=== PATIENT | female | born 1945 | race Asian ===

== ENCOUNTER 2017-06-02 09:37 | Day surgery (SDC) | payer MEDICARE, OTHER ==
[2017-06-02] MEDS ORDERED: NS 1,000 ML IV (10:15)
[2017-06-02] MEDS ORDERED: PROPOFOL 200 MG/20 ML VIAL As Ordered (10:57)
[2017-06-02] MEDS ORDERED: LIDOCAINE 2% INJ 100 MG/5 ML SDV (FOR ANES.) As Ordered (10:58)
== END 2017-06-02 11:45 | disposition home or self-care (01) ==
LOC: M OPP 09:37
DX: R12 Heartburn (principal); Z01.818 Encounter for other preprocedural examination; K21.9 Gastro-esophageal reflux disease without esophagitis; Z79.899 Other long term (current) drug therapy; Z88.8 Allergy status to other drugs, medicaments and biological substances
CPT/HCPCS: 91035

== ENCOUNTER 2017-09-08 09:46 | Day surgery (SDC) | payer MEDICARE, OTHER ==
[2017-09-08] MEDS: NS 1,000 ML IV (11:00)
[2017-09-08] MEDS ORDERED: PROPOFOL 200 MG/20 ML VIAL As Ordered (11:07)
== END 2017-09-08 12:26 | disposition home or self-care (01) ==
LOC: M OPP 09:46
DX: R12 Heartburn (principal); K64.8 Other hemorrhoids; M19.90 Unspecified osteoarthritis, unspecified site; M81.0 Age-related osteoporosis without current pathological fracture; Z78.0 Asymptomatic menopausal state; Z88.8 Allergy status to other drugs, medicaments and biological substances; Z79.899 Other long term (current) drug therapy
CPT/HCPCS: 91035

== ENCOUNTER → 2019-07-25 | Outpatient (REF) | payer MEDICARE, OTHER ==
[~2019-07-25] MED LIST: ARED PO; CALC500T61 PO; CITRTAB18 PO; EYECAP PO; FORT600S SC; GAS-80CH PO; PREV1CAP PO; RANI300C PO; TUMS500C PO
[2019-07-25 15:52] LABS: BLOOD UREA NITROGEN 14 MG/DL (7-18); CALCIUM LEVEL 9.5 MG/DL (8.8-10.2); CARBON DIOXIDE LEVEL 31 MEQ/L (21-32); CHLORIDE LEVEL 104 MEQ/L (98-107); CREATININE FOR GFR 0.59 MG/DL (0.55-1.30); GLOMERULAR FILTRATION RATE > 60.0 (>39); GLUCOSE, FASTING 92 MG/DL (70-100); POTASSIUM SERUM 4.3 MEQ/L (3.5-5.1); SODIUM LEVEL 139 MEQ/L (136-145)
[2019-07-25 16:06] LABS: TOTAL 25(OH) VITAMIN D 24.7 NG/ML (30.0-100.0)
== END ==
LOC: M LABDRWAD 15:10
PROVIDERS: ATTEND Internal Medicine Endocrinology, Diabetes & Metabolism
DX: M81.0 Age-related osteoporosis without current pathological fracture (principal); E55.9 Vitamin D deficiency, unspecified

== ENCOUNTER 2019-10-03 08:23 | Outpatient (CLI) | payer MEDICARE, OTHER ==
[~2019-10-03] VITALS: Ht 162.6 cm; Wt 52.7 kg
[2019-10-03] MEDS ORDERED: ZOLEDRONIC ACID 5 MG in IV 1 EA IV ONE (08:30)
[2019-10-03 08:50] VITALS: BP 178/81
[2019-10-03 09:30] VITALS: BP 134/67
== END 2019-10-03 09:30 | disposition home or self-care (01) ==
LOC: M INFU 08:23
PROVIDERS: ATTEND Internal Medicine Endocrinology, Diabetes & Metabolism
DX: M81.0 Age-related osteoporosis without current pathological fracture (principal); Z88.8 Allergy status to other drugs, medicaments and biological substances
CPT/HCPCS: 96365; J3489

== ENCOUNTER → 2019-12-31 | Outpatient (REF) | payer MEDICARE, OTHER ==
[2019-12-31 15:00] LABS: BLOOD UREA NITROGEN 14 MG/DL (7-18); CALCIUM LEVEL 9.8 MG/DL (8.8-10.2); CARBON DIOXIDE LEVEL 34 MEQ/L (21-32); CHLORIDE LEVEL 103 MEQ/L (98-107); CREATININE FOR GFR 0.61 MG/DL (0.55-1.30); GLOMERULAR FILTRATION RATE > 60.0 (>39); GLUCOSE, FASTING 77 MG/DL (70-100); POTASSIUM SERUM 4.6 MEQ/L (3.5-5.1); SODIUM LEVEL 138 MEQ/L (136-145)
[2019-12-31 15:27] LABS: TOTAL 25(OH) VITAMIN D 42.6 NG/ML (30.0-100.0)
== END ==
LOC: M LABDRWAD 09:48
PROVIDERS: ATTEND Internal Medicine Endocrinology, Diabetes & Metabolism
DX: E55.9 Vitamin D deficiency, unspecified (principal); M81.0 Age-related osteoporosis without current pathological fracture

== ENCOUNTER → 2020-04-28 | Outpatient (CLI) | payer MEDICARE, OTHER | LOC: M LABSMTC 13:36 | PROVIDERS: ATTEND Family Medicine | DX: Z20.828 Contact with and (suspected) exposure to other viral communicable diseases (principal) ==

== ENCOUNTER 2020-06-12 12:36 | Emergency (ER) | payer MEDICARE, OTHER ==
[~2020-06-12] VITALS: Ht 157.5 cm; Wt 49.5 kg
[2020-06-12] MEDS ORDERED: ACETAMINOPHEN 500 MG TAB PO ONE (13:00)
[2020-06-12 13:17] VITALS: BP 171/79
[2020-06-12] MEDS ORDERED: amLODIPine 5 MG TAB PO ONE (14:30)
[2020-06-12] MEDS ORDERED: AMLO1TAB24 PO (14:46)
--- NOTE | 2020-06-12 21:05 | ECGEPIP ---
[facility] - ED Test Date: 2020-06-12 Pat Name: RIYA VINCENT Department: Room: - Gender: Female Manager [employer]: [employer] : 1945 Requested By: Delicia Atkinson Order Number: [id number] Reading MD: Delicia Atkinson Measurements Intervals [place] Rate: 85 P: 75 ID: [id number] QRS: 121 QRSD: 102 T: 17 QT: 371 QTc: 442 Interpretive Statements SINUS RHYTHM POSSIBLE LEFT ATRIAL ENLARGEMENT INCOMPLETE RIGHT BUNDLE BRANCH BLOCK POSSIBLE RIGHT VENTRICULAR HYPERTROPHY NSTTW abnormalities No prior Electronically Signed on 06-12-2020 21:04:56 EST by Delicia Atkinson
== END 2020-06-12 15:01 | disposition home or self-care (01) ==
LOC: M ED 12:36
DX: U07.1 COVID-19 (principal)
CPT/HCPCS: 93005; 99284; M0239

== ENCOUNTER 2020-06-12 15:15 | Outpatient (CLI) | payer MEDICARE, OTHER ==
[2020-06-12] VITALS (7 sets, daily range): BP systolic 151–195; BP diastolic 72–86
[~2020-06-12] VITALS: Ht 157.5 cm; Wt 49.5 kg
--- NOTE | 2020-06-12 13:48 | IPNPDOC ---
Date Seen The patient was seen on 06/12/20. Progress Note SUBJECTIVE: 74 yo F with a pmhx of undiagnosed HTN, presented with a 6 day hx of shortness of breath, headache malaise, and fevers (tmax at home 102, responding to tylenol). her was diagnosed with COVID-19 and is presently admitted to hospital. She is afebrile at time of examination. Saturating at 98% room air. Respiratory rate is 18. Of note, blood pressure is elevated at 171/79. Patient denies any chest pain, seizures of breath, nausea, vomiting, diarrhea at this time. Patient is a candidate for medical injection. Patient was explained all the risks including risk of life-threatening anaphylaxis. Would outpatient therapy order set was placed. Patient will continue to infusion center and discharged after adequate observation. OBJECTIVE PHYSICAL EXAMINATION: VITAL SIGNS: please see below General: NAD, comfortable HEENT: PERRLA, EOMI, sclerae clear Neck: supple, normal ROM, no JVD Respiratory: lungs CTAB, no wheeze, no rales, no crackles CVS: RRR, normal S1, S2, no murmurs Abdo: soft, no masses, no hepatosplenomegaly, BS+, no rebound tenderness Extremities: no edema, pulses 2+ MSK: no joint deformities, normal ROM Neuro: no focal neuro deficits, moving all 4 extremities, CN2-12 intact. Strength 5/5 in all 4 extremities. No nystagmus. Psych: calm, cooperative, AAO x 3 LABORATORY DATA, IMAGING STUDIES, MICROBIOLOGY: Please see below. ASSESSMENT AND PLAN: 74-year-old female with a history of undiagnosed hypertension presenting with malaise, cough, shortness of breath and fevers for the past 6 days. Candidate for monoclonal antibody infusion. Noted to be hypertensive in the ED started on amlodipine. PROBLEMS: Covid-19 infection - saturating 98% on RA - afebrile, no tachypnea - candidate for monoclonal antibody - bamlanivimab infusion - consent signed after risks explained and questions answered - covid outpatient order set placed HTN - BP elevated - started on amlodipine 5 mg daily - follow up with PCP Dispo: DC after MAB infusion. MARLON BALL MD Jun 12, 2020 13:48
[~2020-06-12 15:15] MED LIST changes: +ALBUTEROL 90 MCG/ACT 8GM HFA INHALER INH PRN; +ALBUTEROL SULFATE 2.5 MG/0.5 ML INH NEB SOLN INH PRN; +AMLO1TAB24 PO; +EPINEPHrine INJ 1 MG/ML 1ML AMP IM PRN; +NS 1,000 ML IV SCH; +diphenhydrAMINE 50MG/ML VIAL (J1200) IV PRN; +methylPREDNISolone 125MG 2ML VIAL IV PRN
[2020-06-12] MEDS ORDERED: BAMLANIVIMAB 700 MG in NS 250 ML IV ONE (16:00)
== END 2020-06-12 18:35 | disposition home or self-care (01) ==
LOC: M OPCLI4 15:15 → M OPCLI4PR 15:15 → M MS4PR 15:15 → M OPCLI4PR 18:35
PROVIDERS: ATTEND Family Medicine
DX: U07.1 COVID-19 (principal)

== ENCOUNTER 2020-10-09 13:38 | Outpatient (CLI) | payer MEDICARE, OTHER ==
[~2020-10-09] VITALS: Ht 162.6 cm; Wt 49.5 kg
[~2020-10-09 13:38] MED LIST changes: -ALBUTEROL 90 MCG/ACT 8GM HFA INHALER INH PRN; -ALBUTEROL SULFATE 2.5 MG/0.5 ML INH NEB SOLN INH PRN; -EPINEPHrine INJ 1 MG/ML 1ML AMP IM PRN; -NS 1,000 ML IV SCH; +ZOLEDRONIC ACID 5 MG in IV 1 EA IV ONE; -diphenhydrAMINE 50MG/ML VIAL (J1200) IV PRN; -methylPREDNISolone 125MG 2ML VIAL IV PRN
[2020-10-09 13:50] VITALS: BP 144/67
== END 2020-10-09 14:40 | disposition home or self-care (01) ==
LOC: M INFU 13:38
PROVIDERS: ATTEND Internal Medicine Endocrinology, Diabetes & Metabolism
DX: M81.0 Age-related osteoporosis without current pathological fracture (principal)
CPT/HCPCS: 96365; J3489

== ENCOUNTER → 2021-07-06 | Outpatient (CLI) | payer MEDICARE, OTHER ==
[~2021-07-06] MED LIST changes: -ZOLEDRONIC ACID 5 MG in IV 1 EA IV ONE
== END ==
LOC: M WHC 10:32
PROVIDERS: ATTEND Internal Medicine Endocrinology, Diabetes & Metabolism
DX: M85.851 Other specified disorders of bone density and structure, right thigh (principal); M85.852 Other specified disorders of bone density and structure, left thigh; M81.0 Age-related osteoporosis without current pathological fracture

== ENCOUNTER 2021-10-13 13:52 | Outpatient (CLI) | payer MEDICARE, OTHER ==
[2021-10-13] MEDS ORDERED: ZOLEDRONIC ACID 5 MG in IV 1 EA IV ONE (14:20)
[2021-10-13 14:46] VITALS: BP 168/96
[2021-10-13 15:02] VITALS: BP 142/76
== END 2021-10-13 15:00 | disposition home or self-care (01) ==
LOC: M INFU 13:52
PROVIDERS: ATTEND Internal Medicine Endocrinology, Diabetes & Metabolism
DX: M81.0 Age-related osteoporosis without current pathological fracture (principal); Z88.8 Allergy status to other drugs, medicaments and biological substances
CPT/HCPCS: 96365; J3489

== ENCOUNTER → 2021-10-19 | Outpatient (CLI) | payer MEDICARE, OTHER | LOC: M RAD 10:26 | PROVIDERS: ATTEND Registered Nurse | DX: R22.31 Localized swelling, mass and lump, right upper limb (principal) ==

== ENCOUNTER 2022-03-13 13:51 | Emergency (ER) | payer MEDICARE, OTHER ==
[~2022-03-13] VITALS: Ht 157.5 cm; Wt 49.0 kg
[2022-03-13 13:51] VITALS: BP 177/82
[2022-03-13] MEDS ORDERED: CEPHALEXIN 500 MG CAP PO ONE (16:00)
[2022-03-13] MEDS ORDERED: BOOSTRIX/ADACEL VACCINE (DIPHTH/PERTUSS/ACELL/TETANUS) 0.5ML SYR IM.IMMUN ONE (16:00)
[2022-03-13] MEDS ORDERED: CEPH500C PO (16:16)
== END 2022-03-13 16:25 | disposition home or self-care (01) ==
LOC: M ED 13:51
DX: S62.524B Nondisplaced fracture of distal phalanx of right thumb, initial encounter for open fracture (principal); W23.0XXA Caught, crushed, jammed, or pinched between moving objects, initial encounter; K21.9 Gastro-esophageal reflux disease without esophagitis; Z88.8 Allergy status to other drugs, medicaments and biological substances; Z79.899 Other long term (current) drug therapy; Z23 Encounter for immunization

== ENCOUNTER → 2022-05-18 | Outpatient (CLI) | payer MEDICARE, OTHER ==
[~2022-05-18] MED LIST changes: +CEPH500C PO
== END ==
LOC: M SOG 08:00
PROVIDERS: ATTEND Orthopaedic Surgery Hand Surgery
DX: S62.521D Displaced fracture of distal phalanx of right thumb, subsequent encounter for fracture with routine healing (principal); W18.30XD Fall on same level, unspecified, subsequent encounter

== ENCOUNTER → 2023-03-17 | Outpatient (CLI) | payer MEDICARE, OTHER | LOC: M WUC 13:52 | PROVIDERS: ATTEND Internal Medicine | DX: M25.531 Pain in right wrist (principal) ==

== ENCOUNTER → 2023-09-21 | Outpatient (REF) | payer MEDICARE, OTHER ==
[2023-09-21 19:24] LABS: BLOOD UREA NITROGEN 13 MG/DL (9-23); CALCIUM LEVEL 9.8 MG/DL (8.3-10.6); CARBON DIOXIDE LEVEL 32 MMOL/L (20-31); CHLORIDE LEVEL 106 MMOL/L (98-107); GLOMERULAR FILTRATION RATE > 60.0 (>39); GLUCOSE, FASTING 81 MG/DL (74-106); POTASSIUM SERUM 4.5 MMOL/L (3.5-5.1); SODIUM LEVEL 140 MMOL/L (136-145)
[2023-09-21 19:25] LABS: TOTAL 25(OH) VITAMIN D 65.8 NG/ML (20.0-100.0)
== END ==
LOC: M LABWUC 17:43
PROVIDERS: ATTEND Internal Medicine Endocrinology, Diabetes & Metabolism
DX: E55.9 Vitamin D deficiency, unspecified (principal)

== ENCOUNTER → 2023-10-07 | Outpatient (CLI) | payer MEDICARE, OTHER | LOC: M WHC 08:48 | PROVIDERS: ATTEND Internal Medicine Endocrinology, Diabetes & Metabolism | DX: M81.0 Age-related osteoporosis without current pathological fracture (principal) ==